=== PATIENT | female | born 1980 | race Caucasian/White ===

== ENCOUNTER 2018-11-23 08:50 | Observation (INO) | payer OTHER ==
[2018-11-23] MEDS ORDERED: ONDANSETRON 4 MG/2 ML VIAL ONE ×2 (09:10→13:46)
[2018-11-23] MEDS ORDERED: NA CHLORIDE 0.9% 1,000 ML ONE (09:10)
[2018-11-23] MEDS ORDERED: MORPHINE 4 MG/ML SYR ONE (09:10)
[2018-11-23 09:27] LABS: Absolute Lymphocytes (CBC) 2.7 K/uL (0.7-4.9); Basophils % 0.6 % (0-1.3); Hematocrit 38.5 % (36.0-45.0); Lymphocytes % 31.3 % (15.3-44.8); MPV 9.6 fL (7.6-11.3); RBC Red Blood Cell Count 4.58 M/uL (3.86-4.86)
[2018-11-23] MEDS ORDERED: MEPERIDINE HCL 25 MG/0.5 ML ONE (09:33)
[2018-11-23 09:40] LABS: Albumin 3.8 g/dL (3.4-5.0); Bilirubin Direct 0.2 mg/dL (0-0.2); Bilirubin Total 0.5 mg/dL (0.2-1.0); Potassium 3.9 mmol/L (3.5-5.1); Protein, Total 7.5 g/dL (6.4-8.2)
[2018-11-23] MEDS ORDERED: HYDROMORPHONE HCL 1 MG/ML INJ ONE ×3 (10:28→13:13)
--- NOTE | 2018-11-23 10:29 | RAD REPORT ---
EXAM DESCRIPTION: US - Abdomen Exam Limited - 11/23/2018 9:31 am CLINICAL HISTORY: Abdominal pain. COMPARISON: None. FINDINGS: The gallbladder is distended. 24 millimeter stone is present within the gallbladder neck. The gallbladder wall is not thickened. Minimal pericholecystic fluid Evaluation the common bile duct is limited but does not appear to be grossly dilated IMPRESSION: Cholelithiasis with gallbladder distention Minimal pericholecystic fluid
--- NOTE | 2018-11-23 11:10 | EDPHYS ---
Physician Documentation [facility] Name: Ayana Zimmerman Age: 38 yrs Sex: Female : 1980 Arrival Date: 11/23/2018 Time: 08:52 Bed 8 Private MD: ED Physician Cornelius Zepeda HPI: 11/23 09:05 This 38 yrs old Female presents to ER via Wheelchair with complaints of rn Abdominal Pain, Back Pain. 09:05 The patient presents with abdominal pain in the right upper quadrant. Onset: The rn symptoms/episode began/occurred this morning. The symptoms do not radiate. Associated signs and symptoms: Pertinent positives: anorexia, nausea, Pertinent negatives: chest pain, fever, shortness of breath, vaginal discharge, vomiting, vomiting blood. The symptoms are described as sharp. Modifying factors: The symptoms are alleviated by nothing, the symptoms are aggravated by touching the area. Severity of pain: At its worst the pain was moderate in the emergency department the pain is unchanged. The patient has experienced similar episodes in the past. REports 0300 began with RUQ pain, assoc with back pain and nausea, reports no appetite since last night. NO fever. Has had this before when . NO diarrhea. . 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 - Social history:: Smoking status: . - Ebola Screening: : Patient denies travel to an Ebola-affected area in the 21 days before illness onset. - Family history:: not pertinent. - Hospitalizations: : No recent hospitalization is reported. ROS: 09:05 Constitutional: Negative for fever, chills, and weight loss, Eyes: Negative for injury, rn pain, redness, and discharge, Cardiovascular: Negative for chest pain, palpitations, and edema, Respiratory: Negative for shortness of breath, cough, wheezing, and pleuritic chest pain, Abdomen/GI: + abd pain and nausea Back: Negative for injury : Negative for injury, bleeding, discharge, and swelling, MS/Extremity: Negative for injury and deformity, Skin: Negative for injury, rash, and discoloration, Neuro: Negative for headache, weakness, numbness, tingling, and seizure. Exam: 09:05 Constitutional: This is a well developed, well nourished patient who is awake, alert rn Head/Face: Normocephalic, atraumatic. Eyes: Pupils equal round and reactive to light, extra-ocular motions intact. Lids and lashes normal. Conjunctiva and sclera are non-icteric and not injected. Cornea within normal limits. Periorbital areas with no swelling, redness, or edema. ENT: MMM Cardiovascular: Regular rate and rhythm. No pulse deficits. Respiratory: No increased work of breathing, no retractions or nasal flaring. Abdomen/GI: soft, + RUQ tenderness, neg lozano Skin: Warm, dry with normal turgor. Normal color with no rashes, no lesions, and no evidence of cellulitis. MS/ Extremity: Pulses equal, no cyanosis. Neurovascular intact. Full, normal range of motion. Equal circumference. Neuro: Awake and alert, GCS 15, oriented to person, place, time, and situation. Cranial nerves II-XII grossly intact. Motor strength 5/5 in all extremities. Sensory grossly intact. Vital Signs: 08:59 BP 137 / 89; Pulse 66; Resp 19; Temp 97.5(O); Pulse Ox 100% on R/A; Weight 68.04 kg tw2 (R); Height 5 ft. 2 in. (157.48 cm) (R); Pain 10/10; 09:37 BP 134 / 89; Pulse 64; Resp 17; Pulse Ox 100% on R/A; tw2 10:29 BP 157 / 82; Pulse 66; Resp 17; Pulse Ox 100% on R/A; tw2 11:37 BP 147 / 82; Pulse 66; Resp 17; Pulse Ox 99% on R/A; tw2 08:59 Body Mass Index 27.44 (68.04 kg, 157.48 cm) tw2 MDM: 08:54 Patient medically screened. rn 11:05 Differential diagnosis: cholecystitis, Cholelithiasis, gastritis. Data reviewed: vital rn signs, nurses notes. 11:07 Counseling: I had a detailed discussion with the patient and/or guardian regarding: the rn historical points, exam findings, and any diagnostic results supporting the discharge/admit diagnosis, lab results, radiology results, the need for further work-up and treatment in the hospital. Response to treatment: the patient's symptoms have mildly improved after treatment, and as a result, I will admit patient. Admission orders: after a detailed discussion of the patient's condition and case, the admit orders are written by me. ED course: Pt with large gallbladder stone in neck, mild pericholecystic fluid, likely early cholecystitis, normal LFT and lipase. Dr. Velazquez contacted and will take to OR. Abx ordered. Is NPO.. 11/23 09:05 Order name: Basic Metabolic Panel; Complete Time: 09:57 rn 11/23 09:05 Order name: CBC with Diff; Complete Time: 09:57 rn 11/23 09:05 Order name: Hepatic Function; Complete Time: 09:57 rn 11/23 09:05 Order name: Lipase; Complete Time: 09:57 rn 11/23 11:24 Order name: Urine Dipstick--Ancillary (enter results) 11/23 11:24 Order name: Urine --Ancillary (enter results) 11/23 09:05 Order name: US Abdomen Limited; Complete Time: 10:37 rn 11/23 09:05 Order name: IV Saline Lock; Complete Time: 09:15 rn 11/23 09:05 Order name: Labs collected and sent; Complete Time: 09:15 rn 11/23 09:05 Order name: Urine Test (obtain specimen); Complete Time: 12:42 rn 11/23 09:05 Order name: Urine Dipstick-Ancillary (obtain specimen); Complete Time: 12:42 rn 11/23 11:03 Order name: NPO; Complete Time: 11:15 rn Administered Medications: 09:12 Drug: Zofran 4 mg Route: IVP; Site: right antecubital; tw2 09:47 Follow up: Response: No adverse reaction tw2 09:14 Drug: morphine 4 mg {Note: rass o.} Route: IVP; Site: right antecubital; tw2 09:29 Follow up: Response: No adverse reaction; Pain is unchanged, physician notified; RASS: tw2 Alert and Calm (0) 09:14 Drug: NS 0.9% 1000 ml Route: IV; Rate: 1000 ml; Site: right antecubital; tw2 11:30 Follow up: Response: No adverse reaction; IV Status: Completed infusion; IV Intake: tw2 1000ml 09:35 Drug: Demerol 25 mg {Note: rass 0.} Route: IVP; Site: right antecubital; tw2 10:19 Follow up: Response: No adverse reaction; Pain is unchanged, physician notified tw2 10:28 Drug: Dilaudid 1 mg {Note: rass 0.} Route: IVP; Site: right antecubital; tw2 11:29 Follow up: Response: No adverse reaction; Pain is decreased; RASS: Alert and Calm (0); tw2 "but the pain came back when i moved" 11:22 Drug: Rocephin - (cefTRIAXone) 1 grams {Note: IVP available only.} Route: IVPB; Infused tw2 Over: 5 mins; Site: right antecubital; 11:27 Follow up: Response: No adverse reaction; IV Status: Completed infusion tw2 11:29 Drug: Dilaudid 1 mg {Note: rass 0.} Route: IVP; Site: right antecubital; tw2 11:45 Follow up: Response: No adverse reaction; Pain is decreased; RASS: Alert and Calm (0) tw2 11:30 Drug: Flagyl 500 mg Volume: 100 ml; Route: IVPB; Rate: 200 ml/hr; Infused Over: 30 tw2 mins; Site: right antecubital; 12:05 Follow up: Response: No adverse reaction; IV Status: Completed infusion tw2 Disposition: 11/23/18 11:09 Hospitalization ordered by Jaya Velazquez for Observation. Preliminary diagnosis is Cholecystitis, unspecified. - Bed requested for Telemetry/MedSurg (observation). - Status is Observation. tw2 - Condition is Stable. - Problem is new. - Symptoms have improved. UTI on Admission? No Signatures: Dispatcher [employer] EDMS Cornelius Zepeda MD MD rn Wise, Tara, RN RN tw2 Corrections: (The following items were deleted from the chart) 12:57 11:09 Hospitalization Ordered by Jaya Velazquez MD for Observation. Preliminary diagnosis tw2 is Cholecystitis, unspecified. Bed requested for Telemetry/MedSurg (observation). Status is Observation. Condition is Stable. Problem is new. Symptoms have improved. UTI on Admission? No. rn
--- NOTE | 2018-11-23 11:10 | ER ---
Nurse's Notes [facility] Name: Ayana Zimmerman Age: 38 yrs Sex: Female : 1980 Arrival Date: 11/23/2018 Time: 08:52 Bed 8 Private MD: Diagnosis: Cholecystitis, unspecified Presentation: 11/23 08:58 Presenting complaint: Patient states: i am hurting in my stomach on my upper right side tw2 and it goes to my back, i think its my gallbladder, its like a stabbing pain. Transition of care: patient was not received from another setting of care. Onset of symptoms was November 23, 2018. Risk Assessment: Do you want to hurt yourself or someone else? Patient reports no desire to harm self or others. Initial Sepsis Screen: Does the patient meet any 2 criteria? No. Patient's initial sepsis screen is negative. Does the patient have a suspected source of infection? No. Patient's initial sepsis screen is negative. Care prior to arrival: None. 08:58 Method Of Arrival: Wheelchair tw2 08:58 Acuity: OSCAR 3 tw2 Triage Assessment: 08:59 General: Appears uncomfortable, Behavior is cooperative, appropriate for age. Pain: tw2 Complains of pain in right upper quadrant Pain radiates to back. GI: Reports upper abdominal pain. 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 - Social history:: Smoking status: . - Ebola Screening: : Patient denies travel to an Ebola-affected area in the 21 days before illness onset. - Family history:: not pertinent. - Hospitalizations: : No recent hospitalization is reported. Screenin:01 Abuse screen: Denies threats or abuse. Nutritional screening: No deficits noted. tw2 Tuberculosis screening: No symptoms or risk factors identified. Fall Risk None identified. Assessment: 08:55 General: Appears uncomfortable, Behavior is cooperative, appropriate for age. Pain: tw2 Complains of pain in right upper quadrant. Neuro: Level of Consciousness is awake, alert, obeys commands, Oriented to person, place, time, situation. Cardiovascular: Heart tones S1 S2 Patient's skin is warm and dry. Respiratory: Airway is patent Respiratory effort is even, unlabored, Respiratory pattern is regular, symmetrical, Breath sounds are clear bilaterally. GI: Bowel sounds present X 4 quads. Abd is soft X 4 quads Abdomen is tender to palpation in right upper quadrant and right lower quadrant Reports upper abdominal pain. : No signs and/or symptoms were reported regarding the genitourinary system. EENT: No signs and/or symptoms were reported regarding the EENT system. Derm: No signs and/or symptoms reported regarding the dermatologic system. Musculoskeletal: Range of motion: intact in all extremities. 09:36 Reassessment: No changes from previously documented assessment. Patient and/or family tw2 updated on plan of care and expected duration. Pain level reassessed. Patient is alert, oriented x 3, equal unlabored respirations, skin warm/dry/pink. Patient states symptoms have not improved. 10:29 Reassessment: No changes from previously documented assessment. Patient and/or family tw2 updated on plan of care and expected duration. Pain level reassessed. Patient is alert, oriented x 3, equal unlabored respirations, skin warm/dry/pink. Patient states symptoms have not improved. 11:37 Reassessment: No changes from previously documented assessment. Patient and/or family tw2 updated on plan of care and expected duration. Pain level reassessed. Patient is alert, oriented x 3, equal unlabored respirations, skin warm/dry/pink. 11:54 Reassessment: at bedside evaluating and assessing pt at this time, requests sg that a surgical consent be placed on pt chart for transfer to OR. 12:24 Reassessment: pt IV abx finished infusing at this time, while flushing line, pt used sg her open hand to hit my arm twice and states " hey, hey hey, I need some more pain medicine. Its starting to come back and I need to get something that's going to stop it before it gets too bad." pt instructed that I will let the provider know, pt family remains at bedside at this time, notified of pt order for more pain medication. no new orders received at this time, awaiting OR for pt transport to surgery. 12:55 Reassessment: No changes from previously documented assessment. Patient and/or family tw2 updated on plan of care and expected duration. Pain level reassessed. Patient is alert, oriented x 3, equal unlabored respirations, skin warm/dry/pink. Vital Signs: 08:59 BP 137 / 89; Pulse 66; Resp 19; Temp 97.5(O); Pulse Ox 100% on R/A; Weight 68.04 kg tw2 (R); Height 5 ft. 2 in. (157.48 cm) (R); Pain 10/10; 09:37 BP 134 / 89; Pulse 64; Resp 17; Pulse Ox 100% on R/A; tw2 10:29 BP 157 / 82; Pulse 66; Resp 17; Pulse Ox 100% on R/A; tw2 11:37 BP 147 / 82; Pulse 66; Resp 17; Pulse Ox 99% on R/A; tw2 08:59 Body Mass Index 27.44 (68.04 kg, 157.48 cm) tw2 ED Course: 08:52 Patient arrived in ED. as 08:54 Cornelius Zepeda MD is Attending Physician. rn 08:58 Cheryl Michael RN is Primary Nurse. tw2 08:58 Triage completed. tw2 08:58 Arm band placed on. tw2 09:01 Bed in low position. Call light in reach. tw2 09:32 US Abdomen Limited In Process Unspecified. EDMS 09:40 Inserted saline lock: 20 gauge in right antecubital area, using aseptic technique. kj1 09:58 Initial lab(s) drawn, by me, sent to lab. kj1 11:09 Jaya Velazquez MD is Hospitalizing Provider. rn 12:55 No provider procedures requiring assistance completed. Patient admitted, IV remains in tw2 place. Administered Medications: 09:12 Drug: Zofran 4 mg Route: IVP; Site: right antecubital; tw2 09:47 Follow up: Response: No adverse reaction tw2 09:14 Drug: morphine 4 mg {Note: rass o.} Route: IVP; Site: right antecubital; tw2 09:29 Follow up: Response: No adverse reaction; Pain is unchanged, physician notified; RASS: tw2 Alert and Calm (0) 09:14 Drug: NS 0.9% 1000 ml Route: IV; Rate: 1000 ml; Site: right antecubital; tw2 11:30 Follow up: Response: No adverse reaction; IV Status: Completed infusion; IV Intake: tw2 1000ml 09:35 Drug: Demerol 25 mg {Note: rass 0.} Route: IVP; Site: right antecubital; tw2 10:19 Follow up: Response: No adverse reaction; Pain is unchanged, physician notified tw2 10:28 Drug: Dilaudid 1 mg {Note: rass 0.} Route: IVP; Site: right antecubital; tw2 11:29 Follow up: Response: No adverse reaction; Pain is decreased; RASS: Alert and Calm (0); tw2 "but the pain came back when i moved" 11:22 Drug: Rocephin - (cefTRIAXone) 1 grams {Note: IVP available only.} Route: IVPB; Infused tw2 Over: 5 mins; Site: right antecubital; 11:27 Follow up: Response: No adverse reaction; IV Status: Completed infusion tw2 11:29 Drug: Dilaudid 1 mg {Note: rass 0.} Route: IVP; Site: right antecubital; tw2 11:45 Follow up: Response: No adverse reaction; Pain is decreased; RASS: Alert and Calm (0) tw2 11:30 Drug: Flagyl 500 mg Volume: 100 ml; Route: IVPB; Rate: 200 ml/hr; Infused Over: 30 tw2 mins; Site: right antecubital; 12:05 Follow up: Response: No adverse reaction; IV Status: Completed infusion tw2 Intake: 11:30 IV: 1000ml; Total: 1000ml. tw2 Outcome: 11:09 Decision to Hospitalize by Provider. rn 12:55 Admitted to OR accompanied by nurse, via wheelchair. tw2 12:55 Condition: stable 12:55 Instructed on the need for admit. 12:57 Patient left the ED. tw2 Signatures: Dispatcher [employer] EDRoger Reed RN RN sg Martinez, Amelia as Nieto, Roman, MD MD rn Wise, Tara, RN RN tw2 Nikkie Recinos kj1
[2018-11-23] MEDS ORDERED: CEFTRIAXONE/SWI 1gm 1 GM/10 ML SYR ONE (11:19)
[2018-11-23] MEDS ORDERED: METRONIDAZOLE 500mg IVPB 500 MG/100 ML BAG IV ONE (11:19)
[2018-11-23 11:36] LABS: Urine Blood NEGATIVE (NEG); Urine Glucose NEGATIVE (NEG); Urine Protein NEGATIVE (NEG); Urine Specific Gravity 1.015 (1.005-1.030); Urine pH 8.5 (5.0-7.0)
--- NOTE | 2018-11-23 12:08 | PREOPHP ---
Date of Admission: 11/23/2018 Reason: Abdominal pain. History Of Present Illness: The patient is a 38-year-old female, who comes in with intermittent 1-we ek history of biliary colic with right upper quadrant pain going to the back, associated with bloatin g, belching, and heartburn. Denies nausea, vomiting, diarrhea, blood in her stool, or blood in her u rine. She does have constipation. No dysuria. No sore throat, runny nose, cough, headaches, or diz ziness. No chest pain. No fever or chills. This is postprandial in nature. Review of Systems: Otherwise unremarkable. Past Medical History: Significant for some hypothyroidism and anxiety. Past Surgical History: Sleeve surgery and a couple of C-sections. Allergies: NO ALLERGIES. Social History: She does not smoke. Drinks occasionally. Family History: Noncontributory. Physical Examination: Vital Signs: Stable. She is currently afebrile. General: She is awake, alert, and oriented x3. Head and Neck: Cranial nerves 2 through 12 are grossly within normal limits. No neck masses. No JV D. Throat clear. Neck is supple. There is no evidence of icterus. Chest: Clear. Heart: S1, S2. Abdomen: Soft, nondistended. Positive bowel sounds. Positive right upper quadrant tenderness with rebound. No rigidity or guarding. Extremities: Adequately perfused. Nontender. Neuro: Nonfocal. Laboratory Data: Ultrasound shows cholelithiasis with mild pericholecystic fluid and the stone is in the neck of the gallbladder. Laboratory data reviewed. White count is normal. and lipase are within normal limits. Assessment: Acute cholecystitis and cholelithiasis. Plan: Admit, n.p.o., IV fluid, IV antibiotic, to the OR for lap danilo possible open. Patient unders tands the risks, benefits, and alternatives and agrees to procedure. LESLIE/YASMEEN Voice ID: [id number]
[2018-11-23] MEDS ORDERED: Ringers Lactate 1,000 ML IV ONE ×2 (13:05→14:00)
[2018-11-23] MEDS ORDERED: PROPOFOL 200 MG/20 ML VIAL IV ONE (13:10)
[2018-11-23] MEDS ORDERED: ROCURONIUM 50 MG/5 ML VIAL IV ONE (13:11)
[2018-11-23] MEDS ORDERED: FENTANYL CITR 100 MCG/2 ML ONE (13:12)
[2018-11-23] MEDS ORDERED: LIDOCAINE 2% MPF 5 ML VIAL ONE (13:12)
[2018-11-23] MEDS ORDERED: MIDAZOLAM HCL 2 MG/2 ML INJ ONE (13:17)
[2018-11-23] MEDS ORDERED: KETOROLAC 30 MG/ML INJ ONE (13:46)
[2018-11-23] MEDS ORDERED: dexAMETHasone 10 MG/ML VIAL ONE (13:46)
[2018-11-23] MEDS ORDERED: EPHEDRINE SULF 50 MG/ML VIAL ONE (13:48)
[2018-11-23] MEDS ORDERED: NEOSTIGMINE 1 MG/ML -10 ML VIAL ONE (14:11)
[2018-11-23] MEDS ORDERED: GLYCOPYRROLATE 0.2 MG/ML SYR ONE ×2 (14:11→14:20)
--- NOTE | 2018-11-23 14:34 | P.OP ---
Preoperative diagnosis: Acute Cholecystitis and Cholelithiasis Postoperative diagnosis: same Primary procedure: Lap Patricia Anesthesia: General Estimated blood loss: mi9n Specimen: GB Findings: as above Complications: None Transferred to: Recovery Room Condition: Good
[2018-11-23] MEDS ORDERED: ONDANSETRON 4 MG/2 ML VIAL IV PRN (14:40)
[2018-11-23] MEDS ORDERED: HYDROCODONE/APAP 7.5/325 MG TAB PO PRN (14:40)
[2018-11-23] MEDS ORDERED: Ringers Lactate 1,000 ML IV SCH (15:00)
[2018-11-23 15:29] VITALS: BMI 27.4
[2018-11-23] MEDS ORDERED: INFLUENZA VACCINE (for 3y+) 0.5 ML DOSE IMVAC ONE (17:00)
[2018-11-23] MEDS: CEFOXITIN/SWI 1gm 1 GM/10 ML SYR IV SCH ×2 (17:28→23:40)
[2018-11-23] MEDS ORDERED: CEFOXITIN SODIUM 1 GM/VIAL IVPB SCH (18:00)
--- NOTE | 2018-11-24 01:21 | OP ---
Date of Procedure: 11/23/2018 Surgeon: Jaya Velazquez MD Preoperative Diagnoses: Acute cholecystitis and cholelithiasis. Postoperative Diagnoses: Acute cholecystitis and cholelithiasis. Procedure: Laparoscopic cholecystectomy. Estimated Blood Loss: Minimal. Specimen: Gallbladder. Finding: As above. Anesthesia: General. Complications: None. Disposition: Patient tolerated the procedure in stable condition and taken to Recovery in good gener al condition. Procedure In Detail: Patient was brought to the OR and placed in supine position. General anesthesi a was begun. Patient was prepped and draped in usual sterile fashion. Marcaine 0.5% infiltrated loc ally. 15 blade was used to make a 1 cm supraumbilical midline incision. Subcutaneous tissue was div ided. Fascia was identified and divided. #1 Vicryl stay suture was placed. Peritoneal cavity was e ntered with sharp and blunt dissection. 12 mm trocar was placed into the peritoneal cavity under dir ect vision. Pneumoperitoneum was established and then three 5 mm trocars were placed, 1 in the epiga strium just to the right of midline and 2 in the right subcostal region. Laparoscopy revealed a dist ended gallbladder, which was aspirated of clear bile consistent with hydrops indicating cholecystitis . Fundus retracted superiorly. Infundibulum identified. There was a stone in the neck of the gallb ladder, which was palpated and infundibulum was retracted inferolaterally. Cystic duct and cystic ar forrest were clearly identified with blunt dissection. Clips placed. Both structures were divided. Ca utery used to remove the gallbladder from the liver bed. Bleeding on the liver bed was controlled wi th cautery. The gallbladder was retrieved through the umbilicus via an Endo Catch bag. Right upper quadrant was irrigated. Effluent was clear. No evidence of bleeding or bile leakage appreciated. S ubsequently, all trocars were removed under direct vision. Stay sutures were tied to each other to r eapproximate the fascial defect. Subcutaneous wounds were irrigated. Bleeding was controlled with c autery. 3-0 chromic used for subcutaneous tissue and holley were used to close the skin. Sterile d ressing was applied. The patient was awakened and taken to Recovery in good general condition. /MODL Voice ID: [id number] Report ID: [id number]
[2018-11-24] MEDS: HYDROMORPHONE HCL 1 MG/ML INJ IV PRN ×2 (01:28→05:56)
[2018-11-24] MEDS: CEFOXITIN/SWI 1gm 1 GM/10 ML SYR IV SCH (05:52)
[2018-11-24 06:03] VITALS: O2SAT 99
[2018-11-24 06:20] LABS: BUN Blood Urea Nitrogen 8 mg/dL (7-18); Bicarbonate 28 mmol/L (21-32); Glucose Level 122 mg/dL (74-106); Magnesium 1.8 mg/dL (1.8-2.4); Phosphorus 4.4 mg/dL (2.5-4.9); Potassium 4.3 mmol/L (3.5-5.1); Sodium Level 138 mmol/L (136-145)
[2018-11-24 06:54] LABS: Absolute Lymphocytes (CBC) 1.2 K/uL (0.7-4.9); Basophils % 0.1 % (0-1.3); Hematocrit 28.7 % (36.0-45.0); Lymphocytes % 10.8 % (15.3-44.8); MPV 9.5 fL (7.6-11.3); RBC Red Blood Cell Count 3.34 M/uL (3.86-4.86)
[2018-11-24] MEDS ORDERED: INFLUENZA VACCINE (for 3y+) 0.5 ML DOSE IMVAC ONE (09:00)
[2018-11-24 10:49] VITALS: BP 119/63; TEMP 98.7
--- NOTE | 2018-11-25 05:37 | DS ---
Date of Discharge: 11/24/2018 Admitting Diagnosis: Acute cholecystitis and cholelithiasis. Discharge Diagnosis: Acute cholecystitis and cholelithiasis. Procedure Performed: Laparoscopic cholecystectomy. Hospital Course: Patient is a 38-year-old female, who underwent the aforementioned procedure. Patient was admitted with abdominal pain. Her workup revealed acute cholecystitis and cholelithiasis . She has a history of anemia. She was dehydrated significantly. Her H and H dropped, but I think it is from hydration. Clinically, patient is tolerating diet, ambulating, pain controlled with p.o. pain medication, afebrile, and therefore patient will be discharged to home. Disposition: Home. Condition: Stable. Discharge Instructions: Resume home medications and diet. Activity as tolerated. No heavy lifting. Remove outer dressing in 2 days. Shower. Keep wound clean and dry. Follow up in my office in 1 w teller. Call for appointment. Tylenol No 2, one tablet p.o. q.4 p.r.n. pain. /YASMEEN Voice ID: [id number] Report ID: [id number]
== END 2018-11-24 11:25 | disposition home or self-care (01) ==
LOC: ER 08:50 → ERHOLD 14:01 → 2ND 14:21
PROVIDERS: ADMIT Surgery; ATTEND Surgery
PROC: 0FT44ZZ Resection of Gallbladder, Percutaneous Endoscopic Approach (ICD-10-PCS; principal; 2018-11-23 13:00)
DX: K80.12 Calculus of gallbladder with acute and chronic cholecystitis without obstruction (principal); E86.0 Dehydration; D64.9 Anemia, unspecified; E03.9 Hypothyroidism, unspecified; F41.9 Anxiety disorder, unspecified
CPT/HCPCS: 96365; 96361; 85025 ×2; 80048 ×2; 36415; 83735; 81025; 84100; 80076; 88304; 81003; 83690; 76705; 96375; 99285; 47562; J2704; J2710; J2250; J3010; J1100; J2175; J1170 ×4; J0696; J7030; J2405 ×3; G0378 ×3